=== PATIENT | female | born 1960 | race Caucasian/White ===

== ENCOUNTER 2017-04-29 14:44 | Emergency (ER) | payer MEDICARE ==
[~2017-04-29 14:44] MED LIST: ALBUTEROL17 GM INH; ALPRAZOLAM PO; CATAPRES0.1 MG PO; FLEXERIL10 MG PO; HYDROCODON-ACE1 EAC6; HYDROCODON-ACE1 EAC7 PO; IMMODIUM PO; KLONOPIN PO; LORTAB 10-5001 EACH; MEDROL4 MG/DOSE- PO; METHADONE PO; NAPROSYN500 MG PO; NEURONTIN PO; NO MEDICATIONS; NORCO1 TAB 10/3 PO; PHENERGAN PO; PHENERGAN25 MG PO
[2017-04-29] MEDS ORDERED: METHADOSE5 MG (14:56)
[2017-04-29 16:23] LABS: URINE SOURCE CLEAN CATCH
[2017-04-29 16:32] LABS: URINE APPEARANCE CLEAR; URINE BILIRUBIN NEG (NEG); URINE BLOOD NEG (NEG); URINE COLOR YELLOW; URINE GLUCOSE NEG (NORM); URINE KETONE NEG (NEG); URINE LEUKOCYTE ESTERASE TRACE (NEG); URINE NITRATE NEG (NEG); URINE PROTEIN NEG (NEG); URINE SPECIFIC GRAVITY 1.025 (1.003-1.035)
[2017-04-29 16:35] LABS: MICRO INDICATED? YES
[2017-04-29 16:40] LABS: CULTURE INDICATED? YES; URINE BACTERIA NEG (NEG); URINE CRYSTALS CALCIUM OXALATE /[HPF]; URINE MUCUS PRESENT; URINE SQUAMOUS EPITHELIAL CELL FEW /[HPF]
== END 2017-04-29 17:14 | disposition home or self-care (01) ==
LOC: SED 14:44
PROVIDERS: Nurse Practitioner
DX: N39.0 Urinary tract infection, site not specified (principal); Z86.19 Personal history of other infectious and parasitic diseases
CPT/HCPCS: 81003; 87086; 99283

== ENCOUNTER 2017-05-06 12:36 | Emergency (ER) | payer MEDICARE ==
--- NOTE | ~2017-05-06 | CR127 ---
[facility] A Service of [facility] RADIOLOGY TEXT RESULTS PATIENT: SIVAN TREVINO LOCATION: SED : 56 UNIT #: [id number] AGE: [address]: KAYLA RODRÍGUEZ SEX: F ORDER DR: [id number] [place] [id number] E MR#: [id number] Acc #: [id number] NAME: SIVAN TREVINO. : 1960 SEX: F STUDY DATE/TIME: 05/06/2017 13:09 UNIT: SED ROOM: STUDY DESCRIPTION: CR Foot Complete Min 3 View Rt Attending Physician: (Italo) Kayla Rodríguez Ordering Physician: (Italo) Kayla Rodríguez MEDICAL IMAGING REPORT This report is preliminary unless electronic signature is present. EXAMINATION Three views, right foot. DATE 05/06/2017 HISTORY 57-year-old female with pain of the toes for 1 day. No documented injury. COMPARISON None. FINDINGS No acute displaced fractures identified. No joint dislocation. No significant osteoarthritic changes are identified. No osteolytic or osteoblastic abnormalities. IMPRESSION Normal 3 views of the right foot. Dictated by... Claudette Rosado M.D. THIS IS AN ELECTRONICALLY VERIFIED REPORT Claudette Rosado M.D. at 05/07/2017 2:01 PM BRIA/xiomara TD: 05/06/2017 16:03 JOB #: [id number] MEDICAL IMAGING REPORT [facility] A Service of [facility] RADIOLOGY TEXT RESULTS PATIENT: SIVAN TREVINO LOCATION: SED : 56 UNIT #: [id number] AGE: [address]: KAYLA RODRÍGUEZ SEX: F ORDER DR: Page 1 of 1
[~2017-05-06 12:36] MED LIST changes: +METHADOSE5 MG
== END 2017-05-06 15:00 | disposition home or self-care (01) ==
LOC: SED 12:36
DX: M79.671 Pain in right foot (principal); F17.210 Nicotine dependence, cigarettes, uncomplicated; Z90.49 Acquired absence of other specified parts of digestive tract
CPT/HCPCS: 29405; 73630; 99283